=== PATIENT | male | born 1990 | race Caucasian/White ===

== ENCOUNTER 2022-06-28 05:55 | Emergency (ER) | payer OTHER ==
[~2022-06-28] VITALS: Ht 167.6 cm; Wt 141.5 kg
[2022-06-28 06:09] VITALS: BP 141/98
--- NOTE | 2022-06-28 06:12 | NUR ---
Dr. Emery examining patient.
--- NOTE | 2022-06-28 06:14 | NUR ---
TO LOBBY FOLLOWING TRIAGE. COVID/ [place] SWAB OBTAINED AND SENT TO LAB
[2022-06-28] MEDS ORDERED: BENZ100C6 PO (06:49)
[2022-06-28] MEDS ORDERED: BENZ-300 PO (06:49)
[2022-06-28] MEDS ORDERED: ACET-10509 PO (06:49)
--- NOTE | 2022-06-28 06:57 | NUR ---
Patient discharged with v/s stable. Written and verbal after care instructions given and explained. Patient alert, oriented and verbalized understanding of instructions. Ambulatory with steady gait. All questions addressed prior to discharge. ID band removed. Patient advised to follow up with PMD. Rx of TYLENOL, CEPACOL, BENZONATATE given. Patient educated on indication of medication including possible reaction and side effects. Opportunity to ask questions provided and answered.
== END 2022-06-28 06:57 | disposition home or self-care (01) ==
LOC: MED 05:55
DX: J06.9 Acute upper respiratory infection, unspecified (principal); Z20.822 Contact with and (suspected) exposure to COVID-19; E11.9 Type 2 diabetes mellitus without complications; Z79.4 Long term (current) use of insulin; Z79.899 Other long term (current) drug therapy
CPT/HCPCS: 99283

== ENCOUNTER → 2023-04-01 | Outpatient (CLI) | payer OTHER ==
[~2023-04-01] MED LIST: ACET-10509 PO; BENZ-300 PO; BENZ100C6 PO
[2023-04-01 11:37] LABS: BASOPHILS % (AUTO) 0.9 % (0.0-2.0); EOSINOPHILS # (AUTO) 0.1 K/uL (0-0.4); EOSINOPHILS % (AUTO) 2.5 % (0.0-4.0); HEMATOCRIT 43.5 % (36-52); HEMOGLOBIN 14.7 g/dL (12.0-18.0); LYMPHOCYTES % (AUTO) 36.6 % (20.5-51.1); MEAN CORPUSCULAR HEMOGLOBIN 30 pg (27-31); MEAN CORPUSCULAR HGB CONC 34 g/dL (33-37); MEAN CORPUSCULAR VOLUME 89.5 fL (80-94); MONOCYTES # (AUTO) 0.3 K/uL (0.8-1.0); MONOCYTES % (AUTO) 6.5 % (1.7-9.3); NEUTROPHILS # (AUTO) 2.8 K/uL (1.8-7.7); NEUTROPHILS % (AUTO) 53.5 % (42.2-75.2); PLATELET COUNT (AUTO) 84 K/uL (140-450); RED BLOOD CELL COUNT(AUTO) 4.86 MIL/uL (4.20-6.10); RED CELL DISTRIBUTION WIDTH 14.7 % (11.6-13.7); WHITE BLOOD COUNT (AUTO) 5.3 K/uL (4.8-10.8)
== END | disposition home or self-care (01) ==
LOC: MLB 11:04
PROVIDERS: ATTEND Psychiatry & Neurology Psychiatry
DX: F20.0 Paranoid schizophrenia (principal)
CPT/HCPCS: 36415; 85025

== ENCOUNTER 2023-04-16 13:35 | Outpatient (CLI) | payer OTHER ==
[2023-04-16 14:04] LABS: EOSINOPHILS # (AUTO) 0.1 K/uL (0-0.4); EOSINOPHILS % (AUTO) 2.8 % (0.0-4.0); HEMOGLOBIN 14.2 g/dL (12.0-18.0); LYMPHOCYTES # (AUTO) 2.1 K/uL (2.0-11.5); LYMPHOCYTES % (AUTO) 42.5 % (20.5-51.1); MEAN CORPUSCULAR HEMOGLOBIN 30 pg (27-31); MEAN CORPUSCULAR HGB CONC 34 g/dL (33-37); MEAN CORPUSCULAR VOLUME 88.7 fL (80-94); MONOCYTES # (AUTO) 0.3 K/uL (0.8-1.0); MONOCYTES % (AUTO) 6.9 % (1.7-9.3); NEUTROPHILS # (AUTO) 2.3 K/uL (1.8-7.7); NEUTROPHILS % (AUTO) 46.8 % (42.2-75.2); PLATELET COUNT (AUTO) 91 K/uL (140-450); RED BLOOD CELL COUNT(AUTO) 4.73 MIL/uL (4.20-6.10); RED CELL DISTRIBUTION WIDTH 14.6 % (11.6-13.7); WHITE BLOOD COUNT (AUTO) 4.9 K/uL (4.8-10.8)
[2023-04-16 14:17] LABS: ALBUMIN 3.4 g/dL (3.4-5.0); ANION GAP 10.3 (8-16); CARBON DIOXIDE 29.7 mmol/L (21-32); CHOL/HDL RATIO 2.6 (1-4.5); CREATININE 0.8 mg/dL (0.6-1.3); TOTAL BILIRUBIN 0.6 mg/dL (0.0-1.0)
== END 2023-04-16 18:25 | disposition home or self-care (01) ==
LOC: MDS 13:35
PROVIDERS: ATTEND Internal Medicine Geriatric Medicine
DX: E11.9 Type 2 diabetes mellitus without complications (principal); D69.6 Thrombocytopenia, unspecified
CPT/HCPCS: 36415; 80053; 83036; 85025

== ENCOUNTER 2023-05-07 13:27 | Outpatient (CLI) | payer OTHER ==
[2023-05-07 14:01] LABS: BASOPHILS # (AUTO) 0.1 K/uL (0.00-0.22); BASOPHILS % (AUTO) 0.9 % (0.0-2.0); EOSINOPHILS # (AUTO) 0.1 K/uL (0-0.4); EOSINOPHILS % (AUTO) 2.3 % (0.0-4.0); HEMATOCRIT 42.3 % (36-52); HEMOGLOBIN 14.4 g/dL (12.0-18.0); LYMPHOCYTES # (AUTO) 2.2 K/uL (2.0-11.5); LYMPHOCYTES % (AUTO) 37.2 % (20.5-51.1); MEAN CORPUSCULAR HEMOGLOBIN 30 pg (27-31); MEAN CORPUSCULAR HGB CONC 34 g/dL (33-37); MEAN CORPUSCULAR VOLUME 89.4 fL (80-94); MONOCYTES # (AUTO) 0.4 K/uL (0.8-1.0); MONOCYTES % (AUTO) 7.2 % (1.7-9.3); NEUTROPHILS # (AUTO) 3.1 K/uL (1.8-7.7); NEUTROPHILS % (AUTO) 52.4 % (42.2-75.2); PLATELET COUNT (AUTO) 83 K/uL (140-450); RED BLOOD CELL COUNT(AUTO) 4.74 MIL/uL (4.20-6.10); WHITE BLOOD COUNT (AUTO) 5.9 K/uL (4.8-10.8)
== END 2023-05-07 20:14 | disposition home or self-care (01) ==
LOC: MLB 13:27
PROVIDERS: ATTEND Internal Medicine Geriatric Medicine
DX: F20.9 Schizophrenia, unspecified (principal)
CPT/HCPCS: 36415; 85025

== ENCOUNTER 2023-06-05 14:04 | Outpatient (CLI) | payer OTHER ==
[2023-06-05 14:31] LABS: BASOPHILS % (AUTO) 0.8 % (0.0-2.0); EOSINOPHILS # (AUTO) 0.1 K/uL (0-0.4); EOSINOPHILS % (AUTO) 2.5 % (0.0-4.0); HEMATOCRIT 40.9 % (36-52); HEMOGLOBIN 13.9 g/dL (12.0-18.0); LYMPHOCYTES # (AUTO) 1.9 K/uL (2.0-11.5); LYMPHOCYTES % (AUTO) 38.6 % (20.5-51.1); MEAN CORPUSCULAR HEMOGLOBIN 31 pg (27-31); MEAN CORPUSCULAR HGB CONC 34 g/dL (33-37); MEAN CORPUSCULAR VOLUME 89.6 fL (80-94); MONOCYTES # (AUTO) 0.3 K/uL (0.8-1.0); MONOCYTES % (AUTO) 6.4 % (1.7-9.3); NEUTROPHILS # (AUTO) 2.5 K/uL (1.8-7.7); NEUTROPHILS % (AUTO) 51.7 % (42.2-75.2); PLATELET COUNT (AUTO) 70 K/uL (140-450); RED BLOOD CELL COUNT(AUTO) 4.57 MIL/uL (4.20-6.10); RED CELL DISTRIBUTION WIDTH 14.6 % (11.6-13.7); WHITE BLOOD COUNT (AUTO) 4.9 K/uL (4.8-10.8)
[2023-06-05 14:49] LABS: ALBUMIN 3.3 g/dL (3.4-5.0); ANION GAP 12.8 (8-16); CALCIUM 8.6 mg/dL (8.5-10.1); CARBON DIOXIDE 26.4 mmol/L (21-32); CHOL/HDL RATIO 2.8 (1-4.5); CREATININE 0.9 mg/dL (0.6-1.3); POTASSIUM 4.2 mmol/L (3.5-5.1); TOTAL BILIRUBIN 0.6 mg/dL (0.0-1.0); TOTAL PROTEIN, SERUM 7.3 g/dL (6.4-8.2)
[2023-06-06 20:22] LABS: VITAMIN D, 25-HYDROXY 22.6 ng/mL (30.0-100.0)
== END 2023-06-05 20:05 | disposition home or self-care (01) ==
LOC: MLB 14:04
PROVIDERS: ATTEND Nurse Practitioner Family
DX: E11.65 Type 2 diabetes mellitus with hyperglycemia (principal); F20.9 Schizophrenia, unspecified; E55.9 Vitamin D deficiency, unspecified
CPT/HCPCS: 36415; 80053; 82306; 83036; 85025

== ENCOUNTER 2023-07-10 14:05 | Outpatient (CLI) | payer OTHER ==
[2023-07-10 14:41] LABS: BASOPHILS % (AUTO) 0.6 % (0.0-2.0); EOSINOPHILS # (AUTO) 0.1 K/uL (0-0.4); EOSINOPHILS % (AUTO) 1.7 % (0.0-4.0); HEMATOCRIT 42.6 % (36-52); HEMOGLOBIN 14.3 g/dL (12.0-18.0); LYMPHOCYTES # (AUTO) 1.8 K/uL (2.0-11.5); LYMPHOCYTES % (AUTO) 36.1 % (20.5-51.1); MEAN CORPUSCULAR HEMOGLOBIN 30 pg (27-31); MEAN CORPUSCULAR HGB CONC 34 g/dL (33-37); MONOCYTES # (AUTO) 0.3 K/uL (0.8-1.0); MONOCYTES % (AUTO) 6.7 % (1.7-9.3); NEUTROPHILS # (AUTO) 2.7 K/uL (1.8-7.7); NEUTROPHILS % (AUTO) 54.9 % (42.2-75.2); PLATELET COUNT (AUTO) 79 K/uL (140-450); RED BLOOD CELL COUNT(AUTO) 4.74 MIL/uL (4.20-6.10); RED CELL DISTRIBUTION WIDTH 14.1 % (11.6-13.7)
== END 2023-07-10 21:08 | disposition home or self-care (01) ==
LOC: MLB 14:05
PROVIDERS: ATTEND Nurse Practitioner Family
DX: F20.9 Schizophrenia, unspecified (principal)
CPT/HCPCS: 36415; 85025

== ENCOUNTER 2023-08-21 13:33 | Outpatient (CLI) | payer OTHER ==
[2023-08-21 13:55] LABS: BASOPHILS % (AUTO) 0.6 % (0.0-2.0); EOSINOPHILS # (AUTO) 0.1 K/uL (0-0.4); EOSINOPHILS % (AUTO) 1.9 % (0.0-4.0); HEMATOCRIT 43.5 % (36-52); HEMOGLOBIN 14.6 g/dL (12.0-18.0); LYMPHOCYTES # (AUTO) 1.7 K/uL (2.0-11.5); LYMPHOCYTES % (AUTO) 34.5 % (20.5-51.1); MEAN CORPUSCULAR HEMOGLOBIN 30 pg (27-31); MEAN CORPUSCULAR HGB CONC 34 g/dL (33-37); MEAN CORPUSCULAR VOLUME 89.2 fL (80-94); MONOCYTES # (AUTO) 0.3 K/uL (0.8-1.0); MONOCYTES % (AUTO) 6.2 % (1.7-9.3); NEUTROPHILS # (AUTO) 2.7 K/uL (1.8-7.7); NEUTROPHILS % (AUTO) 56.8 % (42.2-75.2); PLATELET COUNT (AUTO) 67 K/uL (140-450); RED BLOOD CELL COUNT(AUTO) 4.87 MIL/uL (4.20-6.10); RED CELL DISTRIBUTION WIDTH 13.9 % (11.6-13.7); WHITE BLOOD COUNT (AUTO) 4.8 K/uL (4.8-10.8)
== END 2023-08-21 20:58 | disposition home or self-care (01) ==
LOC: MLB 13:33
PROVIDERS: ATTEND Nurse Practitioner Family
DX: F20.9 Schizophrenia, unspecified (principal)
CPT/HCPCS: 36415; 85025

== ENCOUNTER 2023-10-07 11:10 | Outpatient (CLI) | payer OTHER ==
[2023-10-07 11:36] LABS: BASOPHILS % (AUTO) 0.9 % (0.0-2.0); EOSINOPHILS # (AUTO) 0.1 K/uL (0-0.4); EOSINOPHILS % (AUTO) 2.3 % (0.0-4.0); HEMATOCRIT 41.7 % (36-52); HEMOGLOBIN 14.3 g/dL (12.0-18.0); LYMPHOCYTES # (AUTO) 1.8 K/uL (2.0-11.5); MEAN CORPUSCULAR HEMOGLOBIN 30 pg (27-31); MEAN CORPUSCULAR HGB CONC 34 g/dL (33-37); MEAN CORPUSCULAR VOLUME 88.7 fL (80-94); MONOCYTES # (AUTO) 0.3 K/uL (0.8-1.0); MONOCYTES % (AUTO) 6.9 % (1.7-9.3); NEUTROPHILS # (AUTO) 2.3 K/uL (1.8-7.7); NEUTROPHILS % (AUTO) 50.9 % (42.2-75.2); PLATELET COUNT (AUTO) 76 K/uL (140-450); RED CELL DISTRIBUTION WIDTH 14.6 % (11.6-13.7); WHITE BLOOD COUNT (AUTO) 4.5 K/uL (4.8-10.8)
== END 2023-10-07 20:06 | disposition home or self-care (01) ==
LOC: MLB 11:10
PROVIDERS: ATTEND Nurse Practitioner Family
DX: F20.9 Schizophrenia, unspecified (principal)
CPT/HCPCS: 36415; 85025

== ENCOUNTER 2023-11-10 13:15 | Outpatient (CLI) | payer OTHER ==
[2023-11-10 14:17] LABS: BASOPHILS % (AUTO) 0.9 % (0.0-2.0); EOSINOPHILS # (AUTO) 0.1 K/uL (0-0.4); HEMOGLOBIN 14.3 g/dL (12.0-18.0); LYMPHOCYTES # (AUTO) 1.6 K/uL (2.0-11.5); LYMPHOCYTES % (AUTO) 37.8 % (20.5-51.1); MEAN CORPUSCULAR HEMOGLOBIN 31 pg (27-31); MEAN CORPUSCULAR HGB CONC 35 g/dL (33-37); MEAN CORPUSCULAR VOLUME 89.1 fL (80-94); MONOCYTES # (AUTO) 0.2 K/uL (0.8-1.0); MONOCYTES % (AUTO) 5.3 % (1.7-9.3); NEUTROPHILS # (AUTO) 2.3 K/uL (1.8-7.7); PLATELET COUNT (AUTO) 73 K/uL (140-450); RED CELL DISTRIBUTION WIDTH 15.1 % (11.6-13.7); WHITE BLOOD COUNT (AUTO) 4.2 K/uL (4.8-10.8)
[2023-11-10 15:11] LABS: ALBUMIN 3.4 g/dL (3.4-5.0); ANION GAP 9.4 (8-16); CALCIUM 9.1 mg/dL (8.5-10.1); CARBON DIOXIDE 28.9 mmol/L (21-32); CHOL/HDL RATIO 2.8 (1-4.5); CREATININE 0.8 mg/dL (0.6-1.3); POTASSIUM 4.3 mmol/L (3.5-5.1); THYROID STIMULATING HORMONE 1.42 uIU/mL (0.34-3.74); TOTAL BILIRUBIN 0.6 mg/dL (0.0-1.0); TOTAL PROTEIN, SERUM 8.9 g/dL (6.4-8.2)
[2023-11-11 08:08] LABS: T4 FREE (DIRECT) 1.16 ng/dL (0.82-1.77); VITAMIN D, 25-HYDROXY 31.8 ng/mL (30.0-100.0)
== END 2023-11-10 20:12 | disposition home or self-care (01) ==
LOC: MLB 13:15
DX: Z13.1 Encounter for screening for diabetes mellitus (principal); Z13.9 Encounter for screening, unspecified; F20.9 Schizophrenia, unspecified; Z13.220 Encounter for screening for lipoid disorders; E55.9 Vitamin D deficiency, unspecified
CPT/HCPCS: 36415; 80053; 82306; 83036; 84439; 84443; 85025

== ENCOUNTER 2023-12-15 09:22 | Outpatient (CLI) | payer OTHER ==
[2023-12-15 09:50] LABS: EOSINOPHILS # (AUTO) 0.1 K/uL (0-0.4); EOSINOPHILS % (AUTO) 3.1 % (0.0-4.0); HEMATOCRIT 41.6 % (36-52); HEMOGLOBIN 14.3 g/dL (12.0-18.0); LYMPHOCYTES # (AUTO) 1.5 K/uL (2.0-11.5); LYMPHOCYTES % (AUTO) 36.6 % (20.5-51.1); MEAN CORPUSCULAR HEMOGLOBIN 31 pg (27-31); MEAN CORPUSCULAR HGB CONC 34 g/dL (33-37); MEAN CORPUSCULAR VOLUME 89.6 fL (80-94); MONOCYTES # (AUTO) 0.3 K/uL (0.8-1.0); MONOCYTES % (AUTO) 6.9 % (1.7-9.3); NEUTROPHILS # (AUTO) 2.1 K/uL (1.8-7.7); NEUTROPHILS % (AUTO) 52.4 % (42.2-75.2); PLATELET COUNT (AUTO) 70 K/uL (140-450); RED BLOOD CELL COUNT(AUTO) 4.64 MIL/uL (4.20-6.10); RED CELL DISTRIBUTION WIDTH 14.6 % (11.6-13.7)
== END 2023-12-15 20:06 | disposition home or self-care (01) ==
LOC: MLB 09:22
PROVIDERS: ATTEND Nurse Practitioner Family
DX: F20.9 Schizophrenia, unspecified (principal)
CPT/HCPCS: 36415; 85025

== ENCOUNTER 2024-01-15 09:23 | Outpatient (CLI) | payer OTHER | END 2024-01-15 19:35 | disposition home or self-care (01) | LOC: MLB 09:23 | DX: K80.20 Calculus of gallbladder without cholecystitis without obstruction (principal); K82.8 Other specified diseases of gallbladder; R16.0 Hepatomegaly, not elsewhere classified; R74.8 Abnormal levels of other serum enzymes | CPT/HCPCS: 76705 ==

== ENCOUNTER 2024-02-19 14:06 | Outpatient (CLI) | payer OTHER ==
[2024-02-19 14:41] LABS: EOSINOPHILS # (AUTO) 0.1 K/uL (0-0.4); LYMPHOCYTES % (AUTO) 39.8 % (20.5-51.1); MONOCYTES # (AUTO) 0.3 K/uL (0.8-1.0); MONOCYTES % (AUTO) 5.9 % (1.7-9.3); NEUTROPHILS # (AUTO) 2.9 K/uL (1.8-7.7)
[2024-02-19 14:44] LABS: BASOPHILS % (AUTO) 0.9 % (0.0-2.0); EOSINOPHILS % (AUTO) 1.5 % (0.0-4.0); HEMOGLOBIN 14.7 g/dL (12.0-18.0); LYMPHOCYTES # (AUTO) 2.2 K/uL (2.0-11.5); MEAN CORPUSCULAR HEMOGLOBIN 31 pg (27-31); MEAN CORPUSCULAR HGB CONC 35 g/dL (33-37); MEAN CORPUSCULAR VOLUME 88.2 fL (80-94); NEUTROPHILS % (AUTO) 51.9 % (42.2-75.2); PLATELET COUNT (AUTO) 95 K/uL (140-450); RED BLOOD CELL COUNT(AUTO) 4.77 MIL/uL (4.20-6.10); RED CELL DISTRIBUTION WIDTH 14.3 % (11.6-13.7); WHITE BLOOD COUNT (AUTO) 5.6 K/uL (4.8-10.8)
== END 2024-02-19 18:18 | disposition home or self-care (01) ==
LOC: MLB 14:06
PROVIDERS: ATTEND Nurse Practitioner Family
DX: F20.9 Schizophrenia, unspecified (principal)
CPT/HCPCS: 36415; 85025

== ENCOUNTER 2024-03-09 10:39 | Outpatient (CLI) | payer OTHER ==
[2024-03-09 11:17] LABS: BASOPHILS % (AUTO) 0.9 % (0.0-2.0); EOSINOPHILS # (AUTO) 0.1 K/uL (0-0.4); EOSINOPHILS % (AUTO) 2.5 % (0.0-4.0); HEMATOCRIT 42.4 % (36-52); HEMOGLOBIN 14.7 g/dL (12.0-18.0); LYMPHOCYTES # (AUTO) 1.5 K/uL (2.0-11.5); LYMPHOCYTES % (AUTO) 28.6 % (20.5-51.1); MEAN CORPUSCULAR HEMOGLOBIN 30 pg (27-31); MEAN CORPUSCULAR HGB CONC 35 g/dL (33-37); MEAN CORPUSCULAR VOLUME 87.5 fL (80-94); MONOCYTES # (AUTO) 0.3 K/uL (0.8-1.0); MONOCYTES % (AUTO) 6.4 % (1.7-9.3); NEUTROPHILS # (AUTO) 3.3 K/uL (1.8-7.7); NEUTROPHILS % (AUTO) 61.6 % (42.2-75.2); PLATELET COUNT (AUTO) 80 K/uL (140-450); RED BLOOD CELL COUNT(AUTO) 4.85 MIL/uL (4.20-6.10); RED CELL DISTRIBUTION WIDTH 14.4 % (11.6-13.7); WHITE BLOOD COUNT (AUTO) 5.4 K/uL (4.8-10.8)
== END 2024-03-09 20:04 | disposition home or self-care (01) ==
LOC: MLB 10:39
DX: F20.9 Schizophrenia, unspecified (principal)
CPT/HCPCS: 36415; 85025

== ENCOUNTER 2024-04-08 11:25 | Outpatient (CLI) | payer OTHER ==
[2024-04-08 12:18] LABS: BASOPHILS % (AUTO) 0.9 % (0.0-2.0); EOSINOPHILS # (AUTO) 0.1 K/uL (0-0.4); EOSINOPHILS % (AUTO) 2.6 % (0.0-4.0); HEMATOCRIT 44.3 % (36-52); HEMOGLOBIN 14.9 g/dL (12.0-18.0); LYMPHOCYTES # (AUTO) 1.7 K/uL (2.0-11.5); MEAN CORPUSCULAR HEMOGLOBIN 30 pg (27-31); MEAN CORPUSCULAR HGB CONC 34 g/dL (33-37); MEAN CORPUSCULAR VOLUME 88.5 fL (80-94); MONOCYTES # (AUTO) 0.3 K/uL (0.8-1.0); MONOCYTES % (AUTO) 6.5 % (1.7-9.3); NEUTROPHILS # (AUTO) 2.6 K/uL (1.8-7.7); PLATELET COUNT (AUTO) 77 K/uL (140-450); RED BLOOD CELL COUNT(AUTO) 5.01 MIL/uL (4.20-6.10); RED CELL DISTRIBUTION WIDTH 14.7 % (11.6-13.7); WHITE BLOOD COUNT (AUTO) 4.8 K/uL (4.8-10.8)
== END 2024-04-08 20:46 | disposition home or self-care (01) ==
LOC: MLB 11:25
PROVIDERS: ATTEND Nurse Practitioner Family
DX: F20.9 Schizophrenia, unspecified (principal)
CPT/HCPCS: 36415; 85025

== ENCOUNTER 2024-06-21 11:16 | Outpatient (CLI) | payer OTHER ==
[~2024-06-21 11:16] MED LIST changes: -ACET-10509 PO; +ACET500T99 PO
[2024-06-21 11:41] LABS: EOSINOPHILS # (AUTO) 0.1 K/uL (0-0.4); HEMATOCRIT 42.7 % (36-52); HEMOGLOBIN 14.3 g/dL (12.0-18.0); MONOCYTES # (AUTO) 0.2 K/uL (0.8-1.0); PLATELET COUNT (AUTO) 65 K/uL (140-450)
[2024-06-21 12:11] LABS: BASOPHILS % (AUTO) 0.7 % (0.0-2.0); LYMPHOCYTES # (AUTO) 1.3 K/uL (2.0-11.5); LYMPHOCYTES % (AUTO) 33.8 % (20.5-51.1); MEAN CORPUSCULAR HEMOGLOBIN 30 pg (27-31); MEAN CORPUSCULAR HGB CONC 34 g/dL (33-37); MEAN CORPUSCULAR VOLUME 88.8 fL (80-94); MONOCYTES % (AUTO) 6.5 % (1.7-9.3); NEUTROPHILS # (AUTO) 2.1 K/uL (1.8-7.7); RED BLOOD CELL COUNT(AUTO) 4.81 MIL/uL (4.20-6.10); RED CELL DISTRIBUTION WIDTH 14.4 % (11.6-13.7); WHITE BLOOD COUNT (AUTO) 3.8 K/uL (4.8-10.8)
== END 2024-06-21 20:08 | disposition home or self-care (01) ==
LOC: MLB 11:16
PROVIDERS: ATTEND Nurse Practitioner Family
DX: F20.9 Schizophrenia, unspecified (principal)
CPT/HCPCS: 36415; 85025

== ENCOUNTER 2024-07-20 10:11 | Outpatient (CLI) | payer OTHER ==
[2024-07-20 10:38] LABS: BASOPHILS % (AUTO) 1.1 % (0.0-2.0); EOSINOPHILS # (AUTO) 0.1 K/uL (0-0.4); EOSINOPHILS % (AUTO) 2.5 % (0.0-4.0); HEMATOCRIT 41.4 % (36-52); HEMOGLOBIN 13.8 g/dL (12.0-18.0); LYMPHOCYTES # (AUTO) 1.1 K/uL (2.0-11.5); LYMPHOCYTES % (AUTO) 31.8 % (20.5-51.1); MEAN CORPUSCULAR HEMOGLOBIN 30 pg (27-31); MEAN CORPUSCULAR HGB CONC 33 g/dL (33-37); MEAN CORPUSCULAR VOLUME 88.5 fL (80-94); MONOCYTES # (AUTO) 0.2 K/uL (0.8-1.0); NEUTROPHILS % (AUTO) 57.6 % (42.2-75.2); PLATELET COUNT (AUTO) 71 K/uL (140-450); RED BLOOD CELL COUNT(AUTO) 4.67 MIL/uL (4.20-6.10); RED CELL DISTRIBUTION WIDTH 14.5 % (11.6-13.7); WHITE BLOOD COUNT (AUTO) 3.5 K/uL (4.8-10.8)
== END 2024-07-20 21:08 | disposition home or self-care (01) ==
LOC: MLB 10:11
PROVIDERS: ATTEND Nurse Practitioner Family
DX: F20.9 Schizophrenia, unspecified (principal)
CPT/HCPCS: 36415; 85025